=== PATIENT | male | born 1960 | race Caucasian/White ===

== ENCOUNTER 2024-02-06 14:27 | Emergency (ER) | payer SELFPAY ==
[~2024-02-06] VITALS: Ht 172.7 cm; Wt 77.1 kg
[2024-02-06 14:48] VITALS: TEMP 98.8; O2SAT 97
[2024-02-06] MEDS: HYDROCODONE/ACETAMINOPHEN 5/325MG TABLET PO ONE (16:52)
[2024-02-06] MEDS ORDERED: NAPR-1486 MT (18:11)
[2024-02-06] MEDS ORDERED: KETOROLAC 30MG/ML VIAL IM ONE (18:30)
[2024-02-06] MEDS: KETOROLAC 30MG/ML VIAL IV STA (18:36)
[2024-02-06] MEDS: METOCLOPRAMIDE HCL 10MG/2ML VIAL IV ONE (18:37)
[2024-02-06] MEDS: DIPHENHYDRAMINE 50MG/ML VIAL IV ONE (18:37)
[2024-02-06] MEDS: SODIUM CHLORIDE 0.9% 1,000 ML IV ONE (18:37)
[2024-02-06 19:04] VITALS: BP 154/85; PULSE 64; RESP 16; O2SAT 98
== END 2024-02-06 19:15 | disposition home or self-care (01) ==
LOC: ER 14:27
DX: R51.9 Headache, unspecified (principal)
CPT/HCPCS: 70450; 96361; 96374; 96375; 99285; J1200; J1885; J2765; J7030; Z7610

== ENCOUNTER 2024-12-08 23:15 | Inpatient (IN) | payer SELFPAY ==
[~2024-12-08] VITALS: Ht 182.9 cm; Wt 70.8 kg
[~2024-12-08 23:15] MED LIST: NAPR-1486 MT
[2024-12-08 23:22] VITALS: O2SAT 95
[2024-12-08 23:51] LABS: BASOPHILS % 0.7 % (0.0-2.0); EOSINOPHILS % 2.8 % (0.0-5.0); HEMATOCRIT. 41.4 % (42.0-52.0); HEMOGLOBIN. 14.2 g/dL (14.0-18.0); LYMPHOCYTES % 18.2 % (20.0-50.0); MEAN PLATELET VOLUME 7.9 fl (7.4-10.4); MONOCYTES % 6.7 % (2.0-8.0); NEUTROPHILS % 71.6 % (40.0-76.0); PLATELET 276 x1000/uL (130-400); RED BLOOD CELL COUNT 5.02 mill/uL (4.7-6.1); RED CELL DISTRIBUTION WIDTH 13.9 % (11.6-14.6)
[2024-12-09] VITALS (7 sets, daily range): BP systolic 106–173; BP diastolic 68–99; PULSE 47–60; RESP 11–15; TEMP 36.3–36.8072; O2SAT 97–98
[2024-12-09 00:09] LABS: CREATININE 1.0 mg/dL (0.6-1.3); UREA NITROGEN BLOOD 16 mg/dL (9-23)
[2024-12-09 00:10] LABS: TROPONIN I HIGH SENSITIVITY < 4 ng/L (3.0-53)
[2024-12-09] MEDS: ONDANSETRON HCL 4MG/2ML INJ IV ONE (00:31)
[2024-12-09] MEDS: MORPHINE SULFATE 4 MG/ML INJ (FOR IV/IM USE) IV ONE (00:32)
[2024-12-09] MEDS ORDERED: ONDANSETRON HCL 4MG/2ML INJ IV PRN (02:00)
[2024-12-09] MEDS ORDERED: CLONIDINE 0.1MG TABLET PO PRN (02:00)
[2024-12-09] MEDS ORDERED: MAGNESIUM/ALUMINUM HYDROXIDE/SIMETHICONE 30ML UDC PO PRN (02:00)
[2024-12-09] MEDS ORDERED: ACETAMINOPHEN 325MG TABLET PO PRN ×2 (02:00)
[2024-12-09] MEDS: ASPIRIN 81MG TABLET PO ONE (02:09)
[2024-12-09 03:14] LABS: CREATININE 1.0 mg/dL (0.6-1.3); UREA NITROGEN BLOOD 13 mg/dL (9-23)
[2024-12-09 03:15] LABS: TROPONIN I HIGH SENSITIVITY < 4 ng/L (3.0-53)
[2024-12-09 06:33] LABS: *AMPHETAMINES SCREEN URINE NEGATIVE (NEGATIVE); *BARBITURATES SCREEN URINE NEGATIVE (NEGATIVE); *BENZODIAZEPINES SCREEN URINE NEGATIVE (NEGATIVE); *COCAINE SCREEN URINE PRESUMPTIVE POSITIVE (NEGATIVE); CANNABINOID URINE SCREEN NEGATIVE (NEGATIVE); ECSTASY MDMA SCREEN URINE NEGATIVE (NEGATIVE); METHADONE URINE SCREEN NEGATIVE (NEGATIVE); OPIATES URINE SCREEN PRESUMPTIVE POSITIVE (NEGATIVE); PHENCYCLIDINE URINE SCREEN NEGATIVE (NEGATIVE)
[2024-12-09] MEDS: THIAMINE HCL 100MG TABLET PO SCH (09:48)
[2024-12-09] MEDS: ENOXAPARIN 40MG/0.4ML SYR SUBCUT SCH (09:49)
[2024-12-09] MEDS: ASPIRIN 81MG EC TABLET PO SCH (10:55)
[2024-12-09 22:21] LABS: TRIGLYCERIDE 154.0 mg/dL (0-150)
[2024-12-09 22:22] LABS: CREATINE KINASE MB FRACTION < 0.5 ng/mL (0.5-3.6); LDL CHOLESTEROL 116.0 mg/dL (5-100)
[2024-12-09 22:23] LABS: TROPONIN I HIGH SENSITIVITY < 4 ng/L (3.0-53)
[2024-12-09 22:26] LABS: T4 FREE 1.21 ng/dL (0.89-1.76)
[2024-12-10] VITALS: BP 113/65; PULSE 53; RESP 13; TEMP 36.3; O2SAT 97
[2024-12-10 04:00] VITALS: BP 118/57; PULSE 49; RESP 12; TEMP 36.4; O2SAT 98
[2024-12-10 08:00] VITALS: BP 118/75; PULSE 49; RESP 14; TEMP 36.7; O2SAT 99
[2024-12-10 09:44] LABS: CREATINE KINASE MB FRACTION < 0.5 ng/mL (0.5-3.6); TROPONIN I HIGH SENSITIVITY < 4 ng/L (3.0-53)
[2024-12-10 12:00] VITALS: BP 142/61; PULSE 61; RESP 13; TEMP 36.7; O2SAT 98
[2024-12-10 16:00] VITALS: BP 136/89; PULSE 61; RESP 16; TEMP 37.1; O2SAT 94
[2024-12-10 20:00] VITALS: BP 115/75; PULSE 57; RESP 15; TEMP 36.9; O2SAT 96
[2024-12-10] MEDS: ATORVASTATIN CALCIUM 40MG TABLET PO SCH (20:17)
[2024-12-10] MEDS: DOCUSATE SODIUM 250MG CAPSULE PO PRN (20:20)
[2024-12-11] VITALS: BP 115/73; PULSE 61; RESP 25; TEMP 36.8; O2SAT 96
[2024-12-11 04:00] VITALS: BP 112/78; PULSE 50; RESP 12; TEMP 36.9; O2SAT 96
[2024-12-11 08:00] VITALS: BP 111/60; PULSE 49; RESP 11; TEMP 36.9; O2SAT 98
[2024-12-11] MEDS: LACTULOSE 20G/30ML UDC PO SCH (08:42)
[2024-12-11] MEDS ORDERED: ASPI-1406 PO (08:55)
[2024-12-11] MEDS ORDERED: LIP40 PO (08:55)
[2024-12-11 10:01] VITALS: BP 111/60; PULSE 49; RESP 11; TEMP 98.4
[2024-12-11 12:00] VITALS: BP 107/54; PULSE 63; RESP 18; TEMP 37; O2SAT 95
== END 2024-12-11 12:55 | disposition home or self-care (01) | DRG 203 ==
LOC: ER 23:15 → 3WST 12-09 01:47 → EDBEDREQTM 12-09 02:12 → EDBEDREQ 12-09 02:12 → EDBEDREQDT 12-09 02:12
PROVIDERS: ADMIT Student in an Organized Health Care Education/Training Program; ATTEND Student in an Organized Health Care Education/Training Program
DX: R07.89 Other chest pain (principal); E78.5 Hyperlipidemia, unspecified; R73.03 Prediabetes; F14.90 Cocaine use, unspecified, uncomplicated
CPT/HCPCS: 36415; 71045; 80048; 80061; 80305; 82550; 82553; 83036; 83880; 84439; 84443; 84484; 85025; 85379; 93005; 93306; 96374; 96375; 99285; J1650; J2270; J2405